=== PATIENT | male | born 1950 | race Caucasian/White ===

== ENCOUNTER → 2016-09-29 | Outpatient (CLI) | payer OTHER ==
[~2016-09-29] MED LIST: ASPIRINEC PO; FISH OIL 1,0001 CAP PO; FLOMAX0.4 M1 PO; FLOMAX0.4 MG PO; LORTAB 7.5-5001 TAB PO; LOTREL 5/10 MG1 CAP PO; MYRBETRIQ25 MG PO
--- NOTE | ~2016-09-29 | CT3 ---
[facility] A Service of [facility] & [facility] RADIOLOGY TEXT RESULTS PATIENT: SR JASMINA BERNARD LOCATION: [facility] : 50 UNIT #: [id number] AGE: [address]: Elvis Cleaning MD SEX: M ORDER DR: [id number] [facility] [place], [place] [address] [id number] O MR#: [id number] Acc #: [id number] NAME: JASMINA BERNARD : 1950 SEX: M STUDY DATE/TIME: 09/29/2016 14:47 UNIT: [facility] ROOM: STUDY DESCRIPTION: CT Abd and Pelv WWo Cont Attending Physician: Elvis Cleaning M.D. Referring Physician: Elvis Cleaning M.D. Ordering Physician: Elvis Cleaning M.D. Primary Care Physician: Bharathi Mendez M.D. MEDICAL IMAGING REPORT This report is preliminary unless electronic signature is present EXAM CT abdomen and pelvis with and without contrast INDICATIONS Gross hematuria for gkb-mm-fjutu days. TECHNIQUE CT abdomen and pelvis performed without contrast. Multiphase protocol. Coronal and sagittal reformatted images were obtained. This CT exam was performed with one or more of the following radiation dose reduction techniques: automatic exposure control, adjustment of mA and/or kV according to patient size, and iterative reconstruction. COMPARISON STUDIES 07/31/2012. FINDINGS Lung bases are clear. The liver is unremarkable. The gallbladder is unremarkable. Spleen is unremarkable. Noncontrast evaluation of the kidneys shows no evidence for renal stone. No ureteral stone. No hydronephrosis. Stable exophytic somewhat hyperdense cyst arising from the upper pole of the left kidney. In the medial mid/lower pole of the left kidney, there is a more irregular marginated lesion which demonstrates a 30 Hounsfield units on noncontrast images, however, enhances up to 56 Hounsfield units following the administration of contrast. It is concerning for a small renal cell carcinoma. There is a simple cyst in the right kidney. The adrenal glands are unremarkable. The pancreas is unremarkable. STS. [facility] A Service of [facility] & [facility] RADIOLOGY TEXT RESULTS PATIENT: SR JASMINA BERNARD LOCATION: [facility] : 50 UNIT #: [id number] AGE: [address]: Elvis Cleaning MD SEX: M ORDER DR: Pelvis: There is some mild thickening in the urinary bladder. Prostatic enlargement. Tiny air bubble in the nondependent portion of the urinary bladder may indicate recent instrumentation. Correlate clinically. Colon unremarkable. No free fluid. The bone windows are unremarkable. IMPRESSION 1. There is a small somewhat irregular marginated lesion within the medial portion of the left kidney in the mid/lower pole which measures about 2.2 cm and demonstrates enhancement and is concerning for a small renal cell carcinoma. 2. No evidence of renal stone or hydronephrosis. 3. Simple cysts elsewhere in the kidneys and also a somewhat hyperdense cyst in the upper pole of the left kidney. 4. Mild urinary bladder wall thickening. Dictated by... Pelon Carroll M.D. THIS IS AN ELECTRONICALLY VERIFIED REPORT Pelon Carroll M.D. at 10/02/2016 4:59 PM EDUARDA/silver TD: 10/01/2016 14:49 JOB #: [id number] MEDICAL IMAGING REPORT Page 1 of 1 COPY
[2016-09-29 15:26] LABS: POC - CREATININE 1.25 mg/dL (0.64-1.27); POC - GFR >60.0 mL/min (>60)
== END | disposition home or self-care (01) ==
LOC: CCAT 12:48
PROVIDERS: Urology
DX: R31.0 Gross hematuria (principal); N28.89 Other specified disorders of kidney and ureter; N28.1 Cyst of kidney, acquired; N32.89 Other specified disorders of bladder
CPT/HCPCS: 74178; 82565; Q9967